=== PATIENT | female | born 1995 | race Asian ===

== ENCOUNTER 2018-01-25 07:12 | Emergency (ER) | payer OTHER ==
[2018-01-25] MEDS: SOD CHLORIDE 0.9% 1,000 ML IV (07:55)
[2018-01-25] MEDS: LIDOCAINE/MYLANTA 40 ML BTL PO (07:58)
[2018-01-25] MEDS: FAMOTIDINE 20 MG INJ IV (07:58)
[2018-01-25] MEDS: ONDANSETRON 4 MG INJ IV (07:58)
== END 2018-01-25 10:32 | disposition home or self-care (01) ==
LOC: FTE 07:12
DX: R11.2 Nausea with vomiting, unspecified (principal); R19.7 Diarrhea, unspecified
CPT/HCPCS: 76705; 96374; 96375; 99285-25